=== PATIENT | female | born 1995 | race Caucasian/White ===

== ENCOUNTER → 2017-06-12 | Outpatient (CLI) | payer BC ==
[~2017-06-12] MED LIST: B-CO1TAB29 PO; IRON1TAB6 PO; LEVOIUD
[2017-06-12 10:29] LABS: CHOLESTEROL/HDL RATIO 3.1
== END | disposition home or self-care (01) ==
LOC: C.LAB1850 09:15
PROVIDERS: ATTEND Physician Assistant
DX: Z00.00 Encounter for general adult medical examination without abnormal findings (principal)

== ENCOUNTER → 2017-06-14 | Day surgery (SDC) | payer BC ==
[2017-06-12 08:18] VITALS: BMI 19.0
[~2017-06-14] VITALS: Ht 172.7 cm; Wt 56.8 kg
[~2017-06-14] MED LIST changes: -B-CO1TAB29 PO; -IRON1TAB6 PO; +LIDOCAINE HCL 2% 2 ML VIAL (20MG/ML) ONE; +PROPOFOL IV EMULSION 10 MG/ML 20 ML VIAL IV ONE; +SODIUM CHLORIDE 0.9% 500ML 500 ML IV ONE
[2017-06-14 08:41] VITALS: Ht 172.7 cm; Wt 56.8 kg
[2017-06-14 08:52] VITALS: TEMP 36.9
--- NOTE | 2017-06-14 09:17 | Endo History and Physical ---
History & Physical Date of Service: Jun 14, 2017. Chief Complaint: REFLUX COUGH WEIGHT LOSS Referring Physician: KENNY JIMENEZ History of Present Illness Globus, cough Past Surgical History Hx Cardiac Surgery: No Hx Internal Defibrillator: No Hx Pacemaker: No Hx Abdominal Surgery: No Hx of Implantable Prosthesis: No Hx Post-Op Nausea and Vomiting: No Hx Cancer Surgery: No Hx Thoracic Surgery: No Hx Orthopedic: No Hx Urinary Tract Surgery: No Family History None Social History Smoking Status: Current Every Day Smoker Hx Substance Use: No Hx Alcohol Use: Yes (RARELY) Allergies Coded Allergies: No Known Allergies (Unverified , 06/14/17) Current Medications Reported Home Medications Medications Dose Route/Sig Max Daily Dose Days Date Category Mirena (Levonorgestrel (Iud)) 20 Mcg/24 Hr Iud 06/12/17 Reported Vital Signs Weight (Kilograms): 56.82 Height (Feet): 5 Height (Inches): 8 Date Time Temp Pulse Resp B/P (MAP) Pulse Ox O2 Delivery O2 Flow Rate FiO2 06/14/17 08:52 36.9 58 16 106/66 (79) 100 Room Air Physical Exam General Appearance: no apparent distress Respiratory/Chest: Respiratory effort: no dyspnea Auscultation: breath sounds normal Cardiovascular: Heart Auscultation: RRR Abdomen: Inspection & Palpation: soft Assessment and Plan Globus - EGD
--- NOTE | 2017-06-14 09:54 | Discharge Instructions ---
Endoscopy Patient Instructions Date / Procedure(s) Performed Jun 14, 2017. EGD Allergy Information Coded Allergies: No Known Allergies (Unverified , 06/14/17) Discharge Date / Findings Jun 14, 2017. Normal exam; small bowel biopsies done. Provider Instructions Activity Restrictions - No exercising or heavy lifting for 24 hours. - Do not drink alcohol the day of the procedure. - Do not drive a car or operate machinery until the day after the procedure. - Do not make any important decisions or sign important papers in 24 hours after the procedure. Following Day: - Return to full activity which may include returning to work/school. Diet Start your diet with liquids and light foods (jello, soup, juice, toast). Then eat your usual diet if not nauseated. Treatment For Common After Affects For mild abdominal pain, bloating, or excessive gas: - Rest - Eat lightly - Lie on right side Follow-Up Information Follow-up with KENNY JIMENEZ as scheduled Anesthesia Information What You Should Know You have had a procedure that required some medicine to reduce anxiety and discomfort. This treatment is called moderate sedation. After receiving the treatment, you may be sleepy, but you will be able to breathe on your own. The effects of the treatment may last for several hours. Follow these instructions along with Activity/Diet recommendations noted above: * Do NOT do anything where dizziness or clumsiness would be dangerous. * Rest quietly at home today, then you can be up and about tomorrow. * Have a responsible person stay with you the rest of today. * You may have had an I.V. today. If so, you may take the dressing off later today. Recommendations Call your doctor if: * Trouble breathing * Continuous vomiting for more than 24 hours * Temperature above 101 degrees * Severe abdominal pain or bloating * Pain not relieved by pain medicine ordered * There is increased drainage or redness from any incision * A large amount of rectal bleeding greater than 2-3 tablespoons. (If you had a polyp/s removed or have hemorrhoids, a small amount of blood - from the rectum is to be expected.) * You have any unanswered questions or concerns. IN THE EVENT OF A SERIOUS EMERGENCY, GO TO THE NEAREST EMERGENCY ROOM Your discharge instructions were prepared by provider Hillary Caro. Patient Instructions Signature Page Demetria Villagomez Patient (or Guardian) Signature/Date: I have read and understand the instructions given to me by my caregivers. Caregiver/RN/Doctor Signature/Date: The above-named patient and/or guardian has received patient instructions on this date. + Original Patient Signature Page (only) stays with chart. Please make copy for patient.
--- NOTE | 2017-06-14 09:54 | GI REPORT ---
Procedure Date: 06/14/2017 9:13 AM Procedure: Upper GI endoscopy Indications: Globus sensation Medicines: See the Anesthesia note for documentation of the administered medications Complications: No immediate complications. Estimated Blood Loss: Estimated blood loss: none. Procedure: Pre-Anesthesia Assessment: - ASA Grade Assessment: II - A patient with mild systemic disease. After obtaining informed consent, the endoscope was passed under direct vision. Throughout the procedure, the patient's blood pressure, pulse, and oxygen saturations were monitored continuously. The scope was introduced through the mouth, and advanced to the second part of duodenum. The upper GI endoscopy was accomplished without difficulty. The patient tolerated the procedure well. Findings: The examined esophagus was normal. The stomach was normal. The examined duodenum was normal. Biopsies were taken with a cold forceps for histology. Impression: - Normal esophagus. - Normal stomach. - Normal examined duodenum. Biopsied. Recommendation: - Discharge patient to home. Would ask PCP to consider PPI trial if reflux induced cough is still a concern. Hillary Lagunas M.D. Hillary Lagunas MD 06/14/2017 9:53:53 AM This report has been signed electronically. Note Initiated On: 06/14/2017 9:13 AM I attest to the content of the Intraoperative Record and orders documented therein, exceptions below
[2017-06-14 10:10] VITALS: BP 112/73; PULSE 51; O2SAT 100
--- NOTE | 2017-06-14 10:11 | Anesthesiology Progress Note ---
Anesthesia Post Op Note Date & Time Jun 14, 2017 at 10:11 Vital Signs Pain Intensity: 0 Vital Signs Past 12 Hours Date Time Temp Pulse Resp B/P (MAP) Pulse Ox O2 Delivery O2 Flow Rate FiO2 06/14/17 09:50 58 16 100/60 (73) 98 Room Air 06/14/17 09:37 60 12 102/50 (67) 99 Mask 06/14/17 08:52 36.9 58 16 106/66 (79) 100 Room Air Notes Mental Status: alert / awake / arousable, participated in evaluation Pt Amnestic to Procedure: Yes Nausea / Vomiting: adequately controlled Pain: adequately controlled Airway Patency, RR, SpO2: stable & adequate BP & HR: stable & adequate Hydration State: stable & adequate Anesthetic Complications: no major complications apparent
== END | disposition home or self-care (01) ==
LOC: C.GI 08:11
PROVIDERS: ATTEND Internal Medicine Gastroenterology
DX: R05 Cough (principal); R63.4 Abnormal weight loss; K21.9 Gastro-esophageal reflux disease without esophagitis; F17.210 Nicotine dependence, cigarettes, uncomplicated

== ENCOUNTER → 2017-09-06 | Outpatient (CLI) | payer BC ==
[~2017-09-06] MED LIST changes: -LIDOCAINE HCL 2% 2 ML VIAL (20MG/ML) ONE; -PROPOFOL IV EMULSION 10 MG/ML 20 ML VIAL IV ONE; -SODIUM CHLORIDE 0.9% 500ML 500 ML IV ONE
--- NOTE | 2017-09-06 19:02 | DIAGNOSTIC IMAGING REPORT ---
PELVIC COMPLETE NON OB HISTORY: 22 years-old Female DYSPAREUNIA COMPARISON: None available TECHNIQUE: Multiple real-time sonographic images of the deep pelvic structures were obtained transabdominally and transvaginally assessing grayscale appearance, color and spectral flow FINDINGS: TRANSABDOMINAL: Anteflexed uterus is noted. Cystic structure within the region of the right adnexum is noted. TRANSVAGINAL: Uterus measures 8.0 x 3.5 x 4.7 cm. Endometrium measures 0.6 cm. There is no focal myometrial mass lesion identified. Small nabothian cysts of the cervix are present. There is a unilocular cystic structure of the right ovary which measures 5.2 x 4.4 x 5.1 cm. The right ovary overall measures 5.7 x 4.8 x 5.9 cm arterial inflow documented. The left ovary measures 3.4 x 1.9 x 2.4 cm and is unremarkable with arterial inflow documented. Normal left ovarian follicles are present. No significant free pelvic fluid identified. IMPRESSION: 1. Right ovarian cyst measures 5.2 cm. There is no evidence of ovarian torsion. 2. Uterus and endometrium are unremarkable. The above report was generated using voice recognition software. It may contain grammatical, syntax or spelling errors. Electronically signed by: Kamari Mendez M.D. 09/06/2017 7:00 PM Dictated Date/Time: 09/06/2017 6:57 PM
== END | disposition home or self-care (01) ==
LOC: C.ULTR 18:21
PROVIDERS: ATTEND Physician Assistant
DX: N94.10 Unspecified dyspareunia (principal)

== ENCOUNTER → 2017-10-29 | Outpatient (CLI) | payer OTHER ==
[~2017-10-29] MED LIST changes: +LEVO1IUD2; -LEVOIUD
--- NOTE | 2017-10-29 14:35 | DIAGNOSTIC IMAGING REPORT ---
PELVIC ULTRASOUND CLINICAL HISTORY: Right ovarian cyst. COMPARISON STUDY: Pelvic ultrasound September 06, 2017. TECHNIQUE: Transabdominal and transvaginal sonography of the pelvis was performed. FINDINGS: The uterus measures 8.4 x 4.3 x 3.3 cm. Endometrium measures 5 mm in thickness. The right ovary measures 4 x 2.3 x 2.7 cm. The right ovarian cyst shown on exam of September 06, 2017 has resolved. The left ovary measures 3.2 x 2.7 x 1.8 cm. There is color flow within each ovary. No free fluid is identified. IMPRESSION: Normal pelvic ultrasound. Resolution of right ovarian cyst shown on ultrasound of September 06, 2017. Electronically signed by: Olegario Schmidt M.D. 10/29/2017 2:34 PM Dictated Date/Time: 10/29/2017 2:32 PM
== END | disposition home or self-care (01) ==
LOC: C.ULTR 13:40
PROVIDERS: ATTEND Physician Assistant
DX: N83.201 Unspecified ovarian cyst, right side (principal)

== ENCOUNTER → 2017-12-26 | Outpatient (CLI) | payer OTHER | END | disposition home or self-care (01) | LOC: C.LAB 10:00 | PROVIDERS: ATTEND Physician Assistant | DX: N92.6 Irregular menstruation, unspecified (principal) ==

== ENCOUNTER → 2017-12-27 | Outpatient (CLI) | payer OTHER ==
--- NOTE | 2017-12-27 13:15 | DIAGNOSTIC IMAGING REPORT ---
PELVIC COMPLETE NON OB CLINICAL HISTORY: LATE PERIOD,PELVIC PAIN PELVIC PAIN COMPARISON STUDY: 10/29/2017 FINDINGS: The uterus measured 7.6 cm. The endometrial stripe measured 4 mm. The right ovary measured 4 cm maximum linear dimension. 2.8 cm simple cyst.. The left ovary measured 3.1 cm with normal vascular flow.. There is no ultrasonographic evidence of ovarian torsion. It should be noted that ovarian torsion can be present with normal Doppler ultrasonographic findings. There was no evidence of pathologic free pelvic fluid. IMPRESSION: 2.8 cm simple right ovarian cyst. Otherwise negative pelvic ultrasound. The above report was generated using voice recognition software. It may contain grammatical, syntax or spelling errors. Electronically signed by: Catarino Olvera M.D. 12/27/2017 1:14 PM Dictated Date/Time: 12/27/2017 1:12 PM
== END | disposition home or self-care (01) ==
LOC: C.ULTRBC 12:34
PROVIDERS: ATTEND Physician Assistant
DX: N92.6 Irregular menstruation, unspecified (principal); R10.2 Pelvic and perineal pain; N83.201 Unspecified ovarian cyst, right side

== ENCOUNTER → 2018-05-20 | Outpatient (CLI) | payer OTHER, BC | END | disposition home or self-care (01) | LOC: C.LAB 11:29 | PROVIDERS: ATTEND Physician Assistant | DX: N92.6 Irregular menstruation, unspecified (principal) ==

== ENCOUNTER → 2018-06-12 | Outpatient (CLI) | payer OTHER, BC | END | disposition home or self-care (01) | LOC: C.LAB 14:12 | PROVIDERS: ATTEND Physician Assistant | DX: Z00.00 Encounter for general adult medical examination without abnormal findings (principal) ==

== ENCOUNTER 2022-08-07 22:10 | Inpatient (IN) ==
[2022-08-07] MEDS ORDERED: LIDOCAINE 1% LOCAL 20 ML VIAL INFIL PRN (23:00)
[2022-08-07] MEDS ORDERED: OXYTOCIN 30 UNITS/500 ML BAG IV PRN (23:00)
[2022-08-07] MEDS ORDERED: LACTATED RINGER'S 1,000 ML IV PRN (23:00)
--- NOTE | 2022-08-07 23:05 | History & Physical Report ---
Date of Service August 07, 2022 Assessment & Plan (1) Spontaneous rupture of amniotic membranes: Plan: 27-year-old -0-1-1 at 39 weeks and 1 day gestation with spontaneous rupture of membranes at 9:15 PM, followed by regular and painful contractions, Vital signs stable afebrile, heart rate category 1, GBS negative, Plan to admit, monitor, labs, epidural for pain per patient request, Anticipate . (2) Active labor at term: History of Present Illness Primary Care Provider: Kimberley Salamanca PA-C Patient is a 27-year-old -0-1-1 at 39 weeks and 1 day gestation, who had irregular contractions during the day and felt a gush of fluid at 9:15 PM. She has been leaking clear fluid since then. Contractions become more regular and painful after rupture of membranes. She is very painful and asking for epidural. She denies vaginal bleeding, fever chills, headaches, change in her vision, nausea or vomiting. Her has been uncomplicated except GERD on multiple medications. 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 Review of Systems as per Subjective / HPI Physical Exam Constitutional: well developed, well nourished and + acute distress (With contractions only) Genitourinary: normal external appearance OB Exam Abdomen: + vertex Manual OB Exam: + cervical dilation 5 cm, + cervical effacement 80% and + st ation -2 OB Exam Monitor Tracing: + external uterine monitor used and + category I Issue positive Results & Data ([facility]) Vital Signs (Past 12 Hours) Vital Signs Pulse BP 08/07/22 22:34 83 129/80 Monitoring Tocodynamometer Contractions every 2 to 3 minutes
[2022-08-07] MEDS ORDERED: ePHEDrine sulfate 50 MG/ML AMP ONE (23:29)
[2022-08-07] MEDS ORDERED: LIDOCAINE 2%/EPINEPHRINE 1:200,000 20 ML SDV ONE (23:30)
[2022-08-07] MEDS ORDERED: SODIUM CHLORIDE 0.9% INJ 10 ML VIAL ONE (23:30)
[2022-08-07] MEDS ORDERED: fentaNYL citrate 100 MCG/2 ML VIAL ONE (23:30)
[2022-08-07] MEDS ORDERED: BUPIVACAINE 0.25% 30 ML VIAL ONE (23:30)
[2022-08-07] MEDS ORDERED: fentaNYL 2MCG/ML ROPIVACAINE 1.25MG/ML 100 ML BAG EPI ONE (23:31)
[2022-08-07 23:40] LABS: Basophils # (auto) 0.03 K/uL (0-0.2); Basophils % (auto) 0.3 %; Eosinophils # (auto) 0.07 K/uL (0-0.50); Eosinophils % (auto) 0.6 %; Hematocrit (blood only) 35.6 % (34.1-44.9); Hemoglobin 12.1 g/dl (12.0-16.0); Immature Granulocytes # (auto) 0.09 K/uL (0.00-0.02); Immature Granulocytes % (auto) 0.8 %; Lymphocytes # (auto) 1.37 K/uL (1.2-3.4); Lymphocytes % (auto) 11.8 %; Mean Corpuscular Hemoglobin 28.8 pg (25.0-34.0); Mean Corpuscular Volume 84.8 fL (80.0-100.0); Mean Platelet Volume 11.3 fL (9.4-12.3); Monocytes # (auto) 0.92 K/uL (0.24-0.82); Monocytes % (auto) 7.9 %; Neutrophils # (auto) 9.16 K/uL (1.4-6.5); Neutrophils % (auto) 78.6 %; Platelet Count 180 K/uL (130-400); RDW Coefficient of Variation 15.8 % (11.5-14.5); RDW Standard Deviation 47.9 fL (36.4-46.3); White Blood Count 11.64 K/ul (4.8-10.8)
[2022-08-07] MEDS ORDERED: fentaNYL 2MCG/ML ROPIVACAINE 1.25MG/ML 100 ML BAG EPI PRN (23:44)
[2022-08-07] MEDS ORDERED: NALBUPHINE HCL INJ 10 MG/ML AMP IV PRN (23:44)
[2022-08-07] MEDS ORDERED: ePHEDrine sulfate 50 MG/ML AMP IV PRN (23:44)
[2022-08-07] MEDS ORDERED: NALOXONE HCL 1 MG in SODIUM CHLORIDE 0.9% 1000ML 1,000 ML IV PRN (23:44)
[2022-08-07] MEDS ORDERED: NALOXONE HCL 0.4 MG/1 ML VIAL/CARP IV PRN (23:44)
[2022-08-07] MEDS ORDERED: diphenhydrAMINE 50 MG/ML VIAL IV PRN (23:44)
[2022-08-07] MEDS ORDERED: ONDANSETRON INJ 2 MG/ML 2 ML VIAL IV PRN (23:44)
--- NOTE | 2022-08-07 23:51 | Anesthesiology Consultation ---
Date of Service August 07, 2022 Assessment & Plan Chart Review Chart Review: Patient NOT seen in Pre Admission Testing and Acceptable Risk for Labor Epidural Consults Requested none ASA ASA2 Proposed Anesthesia Anesthesia Type: Labor Epidural and CSE Risk / Benefits Reviewed With: PT / POA / Parent / Guardian, Accepts Plan and Informed Consent Obtained History Height/Weight Height: 5 ft 8 in Weight: 87.09 kg Allergies Allergy/AdvReac Type Severity Reaction Status Date / Time No Known Allergies Allergy Unverified 10/20/19 07:24 NPO Date Last Intake of Fluids: 08/07/22 Time Last Intake of Fluids: 22:00 Date Last Intake of Solids: 08/07/22 Time Last Intake of Solids: 19:00 Past Medical History Medical History Chronic back pain (02/17/13) Irritable bowel syndrome with constipation Palpitations Exercise / Class Metabolic Activity II 4-5 Yardwork/Stairs/Walk up hill Past Family History Family History Other No significant family history Past Surgical History Surgical History No significant past surgical history Past Anesthesia History No Hx of Anesthesia Complications and No Family Hx of Anesthesia Complications History of PONV No Hx of PONV and History of PONV Social History Smoking Status: Current every day smoker Review of Systems no chest pain or sob Physical Exam Vital Signs Last Vital Signs Pulse 88 08/07/22 23:44 BP 129/80 08/07/22 22:34 Pulse Ox 91 08/07/22 23:44 RR 20 T 36.9 ENMT Mouth: no TMJ abnormality Thyromental Distance: > or= 3.5 Finger Breadths Mallampati Class: II Neck normal visual inspection Respiratory normal respiratory effort Auscultation: lungs clear to auscultation bilaterally Cardiovascular Rate/Rhythm: regular rate and regular rhythm Musculoskeletal Spine: normal cervical ROM Neurologic moves all extremities Psychiatric Orientation: alert and oriented x 3 Testing Laboratory Results 08/07/22 23:26
--- NOTE | 2022-08-08 00:28 | Obstetrical Progress Note ---
Date of Service August 08, 2022 Assessment & Plan Admission and Anticipated Discharge Date Admission Date: August 07, 2022 Subjective Patient is comfortable now after receiving epidural for pain. VSS Afebrile FHR categ I COVID pending Continue to monitor closely. Results & Data ([facility]) Vital Signs (Past 12 Hours) Vital Signs Pulse BP Pulse Ox 08/08/22 00:25 85 117/62 08/08/22 00:23 84 100 08/08/22 00:22 82 129/64 08/08/22 00:18 105 H 100 08/08/22 00:16 87 112/58 L 08/08/22 00:13 99 08/08/22 00:13 90 08/08/22 00:13 92 H 115/69 08/08/22 00:11 92 H 114/56 L 08/08/22 00:08 94 H 100 08/08/22 00:07 90 127/64 08/08/22 00:03 101 H 100 08/08/22 00:04 99 H 128/56 L 08/08/22 00:02 93 H 126/59 L 08/08/22 00:01 91 H 133/113 H 08/08/22 00:00 85 129/99 08/07/22 23:59 91 H 90 08/07/22 23:58 99 08/07/22 23:58 83 08/07/22 23:58 88 145/70 H 08/07/22 23:53 108 H 98 08/07/22 23:52 91 H 92 08/07/22 23:48 86 99 08/07/22 23:44 88 91 08/07/22 23:43 94 H 100 08/07/22 23:38 85 100 08/07/22 23:33 85 100 08/07/22 23:28 73 100 08/07/22 22:34 83 129/80
[2022-08-08] MEDS ORDERED: BENZOCAINE 20% AER SPR 82.5 GM CAN EXT PRN (02:57)
[2022-08-08] MEDS ORDERED: bisacodyL 10 MG SUPP PR PRN (02:57)
[2022-08-08] MEDS ORDERED: ACETAMINOPHEN 325 MG TAB PO PRN (02:57)
[2022-08-08] MEDS ORDERED: HYDROCORTISONE ACETATE 25 MG SUPP PR PRN (02:57)
[2022-08-08] MEDS ORDERED: oxyCODONE/ACETAMINOPHEN 5mg/325mg TAB PO PRN (02:57)
[2022-08-08] MEDS ORDERED: MEASLES, MUMPS & RUBELLA VIRUS VIAL SQ ONE (02:57)
[2022-08-08] MEDS ORDERED: DIPHTHERIA/TETANUS/PERTUSSIS 0.5 ML SYR/VIAL IM ONE (02:57)
[2022-08-08] MEDS ORDERED: OXYTOCIN 30 UNITS/500 ML BAG IV PRN (02:57)
--- NOTE | 2022-08-08 03:04 | Delivery Summary ---
Vaginal Delivery Summary Date of Service August 08, 2022 Vaginal Delivery Summary Patient was found to be fluid dilated and desired to push. She pushed for about 15 minutes and delivered the head without focality. The shoulders were delivered with minimal traction, the baby was handed to the mother that mouth and nose were suctioned. The cord was clamped times and cut. And the baby was taking by nursery team. Vagina and perineum were checked for lacerations. There was only first-degree clitoral laceration which was 1 cm superior to urethral opening. It was bleeding. It was repaired with 3-0 Vicryl on SH needle. Urethra was checked by straight catheter and it was intact. Rest of the vagina, perineum and labia were intact. The placenta was found to be in the vagina, delivered spontaneously as intact and complete. The lower segment was cleared of all clots and debris's, uterus was firm and EBL was 100 mL. Mom and baby tolerated procedure well. The sponge needle instrument count was correct x2. Baby was a viable male , delivered at 02:29 AM and Apgars were 7 and 9. No complications happened, I was present during whole procedure.
--- NOTE | 2022-08-08 05:37 | Anesthesia Procedure Note ---
Date of Service August 08, 2022 Anesthesia Post Epidural Note Vital Signs Vital Signs: Temp Pulse Resp BP Pulse Ox 36.9 C 83 18 129/56 L 98 08/08/22 03:35 08/08/22 04:48 08/08/22 04:15 08/08/22 04:48 08/08/22 02:25 Pain Intensity Abdomen: Pain Intensity: 2 Notes Mental Status: alert / awake / arousable and participated in evaluation Nausea / Vomiting: adequately controlled Pain: adequately controlled Airway Patency, RR, SpO2: stable & adequate BP & HR: stable & adequate Hydration State: stable & adequate Neuraxial Anesthesia: was administered and sensory block is resolving Anesthetic Complications: no major complications apparent and Pt Satisfied with anesthetic care Epidural: Removed without complications and With tip intact
[2022-08-08] MEDS: PRENATAL VITAMIN 1 TAB PO SCH (08:13)
[2022-08-08] MEDS: FERROUS SULFATE 325 MG TAB PO SCH (08:13)
[2022-08-08] MEDS: DOCUSATE SODIUM 100 MG CAP PO SCH ×2 (08:13→21:04)
[2022-08-08] MEDS: IBUPROFEN 600 MG TAB PO PRN ×3 (09:36→21:04)
[2022-08-09 06:38] LABS: Hemoglobin 11.1 g/dl (12.0-16.0); Mean Corpuscular Hemoglobin 28.8 pg (25.0-34.0); Mean Corpuscular Hgb Conc 33.6 g/dL (32.0-36.0); Mean Corpuscular Volume 85.7 fL (80.0-100.0); Mean Platelet Volume 11.4 fL (9.4-12.3); Platelet Count 158 K/uL (130-400); RDW Coefficient of Variation 15.9 % (11.5-14.5); RDW Standard Deviation 49.2 fL (36.4-46.3); Red Blood Count 3.85 M/uL (3.93-5.22); White Blood Count 8.88 K/ul (4.8-10.8)
--- NOTE | 2022-08-09 08:17 | Obstetrical Progress Note ---
Date of Service August 09, 2022 Assessment & Plan Admission and Anticipated Discharge Date Admission Date: August 07, 2022 Subjective Patient is seen and examined. She feels well, no complaints. Ambulating without dizziness Voiding without difficulty Tolerating regular diet with out N&V Bleeding is minimal No fever/ chills/ CP/ SOB/ N&V/ Leg pain Bottle feeding without problems Vital Signs Temp Pulse Resp BP Pulse Ox O2 Del Method 08/09/22 07:20 36.9 C 61 14 137/83 97 Room Air 08/09/22 00:56 36.6 C 75 16 119/55 L 98 Room Air 08/08/22 21:00 36.9 C 78 17 138/88 97 Room Air 08/08/22 16:20 37.1 C 78 16 119/68 97 Room Air 08/08/22 12:10 37.1 C 78 16 128/81 97 Room Air 08/08/22 08:25 36.9 C 81 16 125/74 96 Room Air Lab Results 08/07/22 08/07/22 08/08/22 Range/Units 22:30 23:26 00:25 WBC 11.64 H (4.8-10.8) K/ul RBC 4.20 (3.93-5.22) M/uL Hgb 12.1 (12.0-16.0) g/dl Hct 35.6 (34.1-44.9) % MCV 84.8 (80.0-100.0) fL MCH 28.8 (25.0-34.0) pg MCHC 34.0 (32.0-36.0) g/dL RDW Std Deviation 47.9 H (36.4-46.3) fL RDW Coeff of Jaylen 15.8 H (11.5-14.5) % Plt Count 180 (130-400) K/uL MPV 11.3 (9.4-12.3) fL Immature Gran % (Auto) 0.8 % Neut % (Auto) 78.6 % Lymph % (Auto) 11.8 % [place] % (Auto) 7.9 % Eos % (Auto) 0.6 % Baso % (Auto) 0.3 % Neut # (Auto) 9.16 H (1.4-6.5) K/uL Lymph # (Auto) 1.37 (1.2-3.4) K/uL [place] # (Auto) 0.92 H (0.24-0.82) K/uL Eos # (Auto) 0.07 (0-0.50) K/uL Baso # (Auto) 0.03 (0-0.2) K/uL Immature Gran # (Auto) 0.09 H (0.00-0.02) K/uL Amniotic Protein POS SARS-CoV-2, RNA, NAAT NEGATIVE (NEGATIVE) 08/09/22 Range/Units 06:05 WBC 8.88 (4.8-10.8) K/ul RBC 3.85 L (3.93-5.22) M/uL Hgb 11.1 L (12.0-16.0) g/dl Hct 33.0 L (34.1-44.9) % MCV 85.7 (80.0-100.0) fL MCH 28.8 (25.0-34.0) pg MCHC 33.6 (32.0-36.0) g/dL RDW Std Deviation 49.2 H (36.4-46.3) fL RDW Coeff of Jaylen 15.9 H (11.5-14.5) % Plt Count 158 (130-400) K/uL MPV 11.4 (9.4-12.3) fL Immature Gran % (Auto) % Neut % (Auto) % Lymph % (Auto) % [place] % (Auto) % Eos % (Auto) % Baso % (Auto) % Neut # (Auto) (1.4-6.5) K/uL Lymph # (Auto) (1.2-3.4) K/uL [place] # (Auto) (0.24-0.82) K/uL Eos # (Auto) (0-0.50) K/uL Baso # (Auto) (0-0.2) K/uL Immature Gran # (Auto) (0.00-0.02) K/uL Amniotic Protein SARS-CoV-2, RNA, NAAT (NEGATIVE) PE: General: Alert, orientedx3, NAD Abd: soft, NT, fundus firm, below Umbilicus Perineum intact, Lochia rubra minimal Ext; NT, no edema AP: 27 yo s/p , ppd# 1 VSS Afebrile doing well Continue routine care All questions were answered Desires d/c today. D/C home , f/u in office Results & Data ([facility]) Vital Signs (Past 12 Hours) Vital Signs Temp Pulse Resp BP Pulse Ox O2 Del Method 08/09/22 07:20 36.9 C 61 14 137/83 97 Room Air 08/09/22 00:56 36.6 C 75 16 119/55 L 98 Room Air 08/08/22 21:00 36.9 C 78 17 138/88 97 Room Air
[2022-08-09] MEDS: IBUPROFEN 600 MG TAB PO PRN (08:46)
[2022-08-09] MEDS: PRENATAL VITAMIN 1 TAB PO SCH (08:46)
[2022-08-09] MEDS: DOCUSATE SODIUM 100 MG CAP PO SCH (08:46)
[2022-08-09] MEDS: FERROUS SULFATE 325 MG TAB PO SCH (08:46)
[2022-08-09] MEDS ORDERED: bisacodyL 5 MG TABEC PO SCH (20:00)
== END 2022-08-09 10:40 | disposition home or self-care (01) | DRG 807 ==
LOC: OPB 22:10 → 4S1 22:12 → 4E2 08-08 05:07